=== PATIENT | female | born 1965 | race Caucasian/White ===

== ENCOUNTER 2018-11-22 01:14 | Inpatient (IN) | payer BC, OTHER ==
--- NOTE | 2018-11-22 01:37 | ED ---
Psychiatric Complaint - HPI Summary HPI Summary: Pt is a 53 y/o female who presents to the ED c/o SI. She c/o worsening anxiety, depression, and SI. Pt drinks alcohol daily, including tonight. Pt is accompanied by her daughter. She is on Cymbalta and Benicar and states that she has ran out of her Cymbalta. Pt took her HTN medication this morning. She denies any MILLARD or N/V. PMHx depression. She denies any drug use or smoking. - History Of Current Complaint Chief Complaint: EDMentalHealth Time Seen by Provider: 11/22/18 01:26 Hx Obtained From: Patient Onset/Duration: Gradual Onset, Worse Since Timing: Constant Character: Depressed, Anxious Aggravating Factor(s): Medication Non-compliance - ran out of Cymbalta Related History: Positive For: Prior Psychiatric Issues Has Suicidal: Reports: Thoughts. Denies: Has Prior Attempt(s) - Allergies/Home Medications Allergies/Adverse Reactions: Allergies Allergy/AdvReac Type Severity Reaction Status Date / Time Sulfa (Sulfonamide Allergy Unknown Verified 11/22/18 01:21 Antibiotics) Reaction Details PMH/Surg Hx/FS Hx/Imm Hx Cardiovascular History: Reports: Hx Hypercholesterolemia, Hx Hypertension Respiratory History: Reports: Hx Sleep Apnea - mild GI History: Reports: Hx Gastroesophageal Reflux Disease Psychiatric History: Reports: Hx Depression - Surgical History Surgery Procedure, Year, and Place: gastric bypass Infectious Disease History: No Infectious Disease History: Denies: Traveled Outside the [place] in Last 30 Days - Family History Known Family History: Positive: Cardiac Disease, Hypertension, Other - [place] - Social History Alcohol Use: Daily Hx Substance Use: No Substance Use Type: Reports: None Hx Tobacco Use: No Smoking Status (MU): Never Smoked Tobacco Review of Systems Negative: Vomiting, Nausea Negative: Headache Positive: Anxious, Depressed, Other - SI All Other Systems Reviewed And Are Negative: Yes Physical Exam - Summary Physical Exam Summary: VITAL SIGNS: Reviewed. GENERAL: Patient is a well-developed and nourished FEMALE who is lying comfortable in the stretcher. Patient is not in any acute respiratory distress. Alcohol on breath. HEAD AND FACE: No signs of trauma. No ecchymosis, hematomas or skull depressions. No sinus tenderness. EYES: PERRLA, EOMI x 2, No injected conjunctiva, no nystagmus. EARS: Hearing grossly intact. Ear canals and tympanic membranes are within normal limits. MOUTH: Oropharynx within normal limits. NECK: Supple, trachea is midline, no adenopathy, no JVD, no carotid bruit, no c- spine tenderness, neck with full ROM. CHEST: Symmetric, no tenderness at palpation LUNGS: Clear to auscultation bilaterally. No wheezing or crackles. CVS: Regular rate and rhythm, S1 and S2 present, no murmurs or gallops appreciated. ABDOMEN: Soft, non-tender. No signs of distention. No rebound no guarding, and no masses palpated. Bowel sounds are normal. EXTREMITIES: FROM in all major joints, no edema, no cyanosis or clubbing. NEURO: Alert and oriented x 3. No acute neurological deficits. Speech is normal and follows commands. SKIN: Dry and warm Triage Information Reviewed: Yes Vital Signs On Initial Exam: Initial Vitals Temp Pulse Resp BP Pulse Ox 97.4 F 83 16 195/125 98 11/22/18 01:15 11/22/18 01:15 11/22/18 01:15 11/22/18 01:15 11/22/18 01:15 Vital Signs Reviewed: Yes Diagnostics - Vital Signs Vital Signs Temp Pulse Resp BP Pulse Ox 11/22/18 01:15 97.4 F 83 16 195/125 98 - Laboratory Result Diagrams: 11/22/18 01:52 11/22/18 01:52 Lab Statement: Any lab studies that have been ordered have been reviewed, and results considered in the medical decision making process. - EKG 1:53 Cardiac Rate: NL - 78 bpm EKG Rhythm: Sinus Rhythm Summary of EKG Findings: Normal axis. Normal interval. No ischemic changes. Course/Dx - Course Course Of Treatment: Pt is a 53 y/o female who presents to the ED c/o worsening anxiety, depression, and SI. Pt drinks alcohol daily, including tonight. A physical exam revealed alcohol on breath. An EKG was normal with a rate of 78 bpm. In the course pt was given Apresoline and KCl. Bloodwork without abnormalities. A urine toxicology revealed serum alcohol of 347. Pt will be signed out to Dr. Cardoso at shift change, pending sobriety and MHE. Final dx of depression and alcohol intoxication. - Differential Dx/Clinical Impression Provider Diagnosis: Depression, Alcohol intoxication Discharge - Sign-Out/Discharge Documenting (check all that apply): Sign-Out Patient Signing out patient TO: Maninder Cardoso Patient Received Moderate/Deep Sedation with Procedure: No - Discharge Plan Referrals: Adam Bazan MD [Primary Care Provider] - - Attestation Statements Document Initiated by Scribe: Yes Documenting Scribe: Mercedes Moran Provider For Whom Scribe is Documenting (Include Credential): Ralph Andrea MD Scribe Attestation: Mercedes Arzola, scribed for Ralph Andrea MD on 11/22/18 at 0606. Status of Scribe Document: Ready
[2018-11-22] MEDS ORDERED: Nicotine Inhaler* 10 MG AMP INH PRN (01:43)
[2018-11-22] MEDS ORDERED: hydrALAZINE IV* 20 MG/ML VIAL IV SLOW PU ONE (01:45)
[2018-11-22 01:55] LABS: Urine Appearance Clear; Urine Bilirubin Negative (Negative); Urine Blood Negative (Negative); Urine Color Straw; Urine Glucose Negative (Negative); Urine Ketones Negative (Negative); Urine Nitrite Negative (Negative); Urine Protein Negative (Negative); Urine Specific Gravity 1.001 (1.010-1.030); Urine Urobilinogen Negative (Negative)
[2018-11-22 02:00] LABS: ABS Basophils 0.1 10^3/ul (0-0.2); ABS Eosinophils 0.4 10^3/ul (0-0.6); ABS Lymphocytes 2.5 10^3/ul (1.0-4.8); ABS Monocytes 0.6 10^3/ul (0-0.8); ABS Neutrophils 6.5 10^3/ul (1.5-7.7); ABS Nucleated RBC 0 10^3/ul; Eosinophil % 3.8 %; Hematocrit 37 % (33-41); Lymphocyte % 24.5 %; Mean Corpuscular HGB Conc 33 g/dL (31-36); Mean Corpuscular Hemoglobin 27 pg (27-31); Mean Corpuscular Volume 84 fL (80-97); Mean Platelet Volume 7.6 fL (7.4-10.4); Nucleated Red Blood Cells % 0; Platelet Count 246 10^3/uL (150-450); Red Blood Count 4.38 10^6 /uL (3.70-4.87); Red Cell Distribution Width 15 % (10.5-15); White Blood Count 10.1 10^3/uL (3.5-10.8)
[2018-11-22 02:19] LABS: Barbiturates Urine Screen None Detected (None Detect); Benzodiazepine Urine Screen None Detected (None Detect); Urine Cannabinoids Screen None Detected (None Detect)
[2018-11-22 02:28] LABS: ALT 17 U/L (7-52); AST 26 U/L (13-39); Albumin 4.6 g/dL (3.2-5.2); Albumin/Globulin Ratio 1.7 (1-3); Alkaline Phosphatase 98 U/L (34-104); Anion Gap 10 mmol/L (2-11); BUN/Creatinine Ratio 10.9 (8-20); Blood Urea Nitrogen 7 mg/dL (6-24); CO2 Carbon Dioxide 19 mmol/L (22-32); Chloride 104 mmol/L (101-111); EGFR African American 117.9 (>60); EGFR Non-African American 97.4 (>60); Globulin 2.7 g/dL (2-4); Glucose 98 mg/dL (70-100); Potassium 3.4 mmol/L (3.5-5.0); Sodium 133 mmol/L (135-145); Total Protein 7.3 g/dL (6.4-8.9)
[2018-11-22 02:34] LABS: Acetaminophen < 15 mcg/mL; Alcohol 347 mg/dL (<10)
[2018-11-22 02:48] LABS: TSH (Thyroid Stimulating Horm) 4.36 mcIU/mL (0.34-5.60)
[2018-11-22] MEDS ORDERED: Potassium Chlor TAB* 20 MEQ TAB.ER PO ONE (03:39)
--- NOTE | 2018-11-22 07:06 | ED ---
Progress - Progress Note Progress Note: This patient was signed out to Dr. Cardoso from Dr. Andrea upon provider shift change pending mental health evaluation and repeat EtOH. Re-Evaluation - Re-Evaluation First Eval Re-Evaluation Time: 07:36 Change: Unchanged Comment: Pt appears to have been crying. Course/Dx - Course Course Of Treatment: Pt is a 53 y/o female who presents to the ED c/o worsening anxiety, depression, and SI. Pt drinks alcohol daily, including tonight. A physical exam revealed alcohol on breath. An EKG was normal with a rate of 78 bpm. In the course pt was given Apresoline and KCl. Bloodwork without abnormalities. A urine toxicology revealed serum alcohol of 347. Pt will be signed out to Dr. Cardoso at shift change, pending sobriety and MHE. Patient was ablated by to plan and recommends for the patient to be admitted to his services for further workup and management. Final dx of depression and alcohol intoxication. - Diagnoses Provider Diagnoses: Substance induced mood disorder Discharge - Sign-Out/Discharge Documenting (check all that apply): Patient Departure - Admit, Receiving Sign- Out Receiving patient FROM: Ralph Andrea Patient Received Moderate/Deep Sedation with Procedure: No - Discharge Plan Condition: Stable Disposition: PSYCHIATRIC FACILITY-[facility] [place] Referrals: Adam Bazan MD [Primary Care Provider] - - Billing Disposition and Condition Condition: STABLE Disposition: Psychiatric Facility [facility] [place] - Attestation Statements Document Initiated by Greggibe: Yes Documenting Scribe: Bronwyn Gill Provider For Whom Scribe is Documenting (Include Credential): Maninder Cardoso MD Scribe Attestation: Bronwyn Arzola scribed for Maninder Cardoso MD on 11/22/18 at 1625. Scribe Documentation Reviewed: Yes Provider Attestation: The documentation as recorded by the Bronwyn henderson accurately reflects the service I personally performed and the decisions made by Maninder cuello MD Status of Scribe Document: Viewed
[2018-11-22] MEDS ORDERED: busPIRone TAB* 10 MG PO ONE (14:16)
[2018-11-22] MEDS ORDERED: Metoprolol Succinate XL TAB* 50 MG PO ONE (14:16)
--- NOTE | 2018-11-22 14:17 | PN ---
ED Flex Patient Progress Note Date of Service: 11/21/18 Subjective: This is a 53 year-old F who is pending admission to [facility] / transfer to another psychiatric facility / discharge to home / or being observed secondary to depression, SI, ETOH abuse. Pt. examined in room 8 at 1417. She is lying in bed, tearful. Family present. Pt. notes she is a daily drinking and has gone through ETOH withdrawal in the past without seizures. Pt. notes feeling, anxious, h/a, and nausea. Objective: Vitals: Most recent vital signs documented below. General NAD, Alert and oriented x3. Laboratory: Current laboratory results documented below. Assessment: ETOH abuse, depression. Plan: Pending MHE. Morning medication ordered. Pt states she has not been taking cymbalta. Vital Signs Temp Pulse Resp BP Pulse Ox 97.4 F 72 36 147/90 99 11/22/18 01:15 11/22/18 11:15 11/22/18 03:00 11/22/18 11:45 11/22/18 11:15 Lab Results - Entire Visit 11/22/18 11/22/18 11/22/18 01:52 01:52 01:41 WBC 10.1 RBC 4.38 Hgb 12.0 Hct 37 MCV 84 MCH 27 MCHC 33 RDW 15 Plt Count 246 MPV 7.6 Neut % (Auto) 64.7 Lymph % (Auto) 24.5 [place] % (Auto) 6.1 Eos % (Auto) 3.8 Baso % (Auto) 0.9 Absolute Neuts (auto) 6.5 Absolute Lymphs (auto) 2.5 Absolute Monos (auto) 0.6 Absolute Eos (auto) 0.4 Absolute Basos (auto) 0.1 Absolute Nucleated RBC 0 Nucleated RBC % 0 Sodium 133 L Potassium 3.4 L Chloride 104 Carbon Dioxide 19 L Anion Gap 10 BUN 7 Creatinine 0.64 Est GFR ( Amer) 117.9 Est GFR (Non-Af Amer) 97.4 BUN/Creatinine Ratio 10.9 Glucose 98 Calcium 9.0 Total Bilirubin 0.40 AST 26 ALT 17 Alkaline Phosphatase 98 Total Protein 7.3 Albumin 4.6 Globulin 2.7 Albumin/Globulin Ratio 1.7 TSH 4.36 Urine Color Urine Appearance Urine pH Ur Specific [place] Urine Protein Urine Ketones Urine Blood Urine Nitrate Urine Bilirubin Urine Urobilinogen Ur Leukocyte Esterase Urine Glucose Salicylates 3.80 Urine Opiates Screen None detected Acetaminophen < 15 Ur Barbiturates Screen None detected Ur Phencyclidine Scrn None detected Ur Amphetamines Screen None detected U Benzodiazepines Scrn None detected Urine Cocaine Screen None detected U Cannabinoids Screen None detected Serum Alcohol 347 H 11/22/18 01:41 WBC RBC Hgb Hct MCV MCH MCHC RDW Plt Count MPV Neut % (Auto) Lymph % (Auto) [place] % (Auto) Eos % (Auto) Baso % (Auto) Absolute Neuts (auto) Absolute Lymphs (auto) Absolute Monos (auto) Absolute Eos (auto) Absolute Basos (auto) Absolute Nucleated RBC Nucleated RBC % Sodium Potassium Chloride Carbon Dioxide Anion Gap BUN Creatinine Est GFR ( Amer) Est GFR (Non-Af Amer) BUN/Creatinine Ratio Glucose Calcium Total Bilirubin AST ALT Alkaline Phosphatase Total Protein Albumin Globulin Albumin/Globulin Ratio TSH Urine Color Straw Urine Appearance Clear Urine pH 6.0 Ur Specific [place] 1.001 L Urine Protein Negative Urine Ketones Negative Urine Blood Negative Urine Nitrate Negative Urine Bilirubin Negative Urine Urobilinogen Negative Ur Leukocyte Esterase Negative Urine Glucose Negative Salicylates Urine Opiates Screen Acetaminophen Ur Barbiturates Screen Ur Phencyclidine Scrn Ur Amphetamines Screen U Benzodiazepines Scrn Urine Cocaine Screen U Cannabinoids Screen Serum Alcohol
[2018-11-22] MEDS ORDERED: Acetaminophen TAB* 325 MG PO ONE (14:53)
[2018-11-22] MEDS ORDERED: Al Hydrox/Mg Hydrox/Simet LIQ* 30 ML UDC PO PRN (18:23)
[2018-11-22] MEDS ORDERED: LORazepam TAB(*) 1 MG ONE (18:42)
[2018-11-22] MEDS: LORazepam PO 0-6 for WAM protocol PO SCH (18:45)
[2018-11-23] MEDS: LORazepam PO 0-6 for WAM protocol PO SCH ×2 (07:40→17:38)
[2018-11-23] MEDS: Metoprolol Succinate XL TAB* 50 MG PO SCH ×2 (07:40→23:00)
[2018-11-23] MEDS: Vitamin THERAPEUTIC TAB PO SCH (07:59)
[2018-11-23 08:38] LABS: HDL Cholesterol 78.4 mg/dL
[2018-11-23 08:42] LABS: HCG Pregnancy 3.23 mIU/mL
--- NOTE | 2018-11-23 19:40 | HP ---
HISTORY AND PHYSICAL: DATE OF ADMISSION: IDENTIFYING DATA: Nancy is a 53-year-old , employed, female with no prior history of psychiatric admissions, was brought to the emergency department by her daughter because of severe depression, anxiety, suicidal ideations, and excessive drinking on daily basis. CHIEF COMPLAINT: "I feel like a failure in my life, my marriage, and my motherhood." HISTORY OF PRESENT ILLNESS: This 53-year-old female with excessive drinking for approximately 15 years has been going downhill to the point that she is having difficulty maintaining her marriage, her relationship with her daughters and grand babies. She thinks she has everything to be happy, but it is very difficult for her to feel happy. She describes her mood as very depressed with lack of motivation, feeling helpless, hopeless, worthless, and in recent past, she even thought about killing herself, although she did not choose any method how to do it. She has been drinking excessively knowing that it can kill herself , although she did not think she was actively working on ending her life. However, when she drinks excessively, either she passes out or get suicidal and impulsive as well. Her family was very concerned about her safety and that is when they brought her to the emergency room for help. Now, Nancy wants to get a detox on a medical setting prior to going into an alcohol rehab program. PAST PSYCHIATRIC HISTORY: Nancy never had any formal psychiatric treatments, although her primary care physician prescribes her Cymbalta, low dose, for depression. PAST MEDICAL HISTORY: Hypertension which is well controlled on beta max. ALLERGIES: She is allergic to SULFA, reaction as the patient describes is her throat gets closed up. FAMILY HISTORY: She is the youngest of 6 siblings. She has 4 sisters and 1 brother. Her relationship with her siblings are not that good. One of her sisters suffers from bipolar disorder. PERSONAL AND SOCIAL HISTORY: Born and raised in [facility]. Nancy moved to this area for work. 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 She has 3 daughters, who are grown up and , all of them live separately. Her of more than 25 years lives with her with their 4 dogs. In recent past, their relationship has been hampered related to her excessive drinking. PHYSICAL EXAMINATION GENERAL: Nancy is average height, average weight female, who is neatly dressed and groomed. VITAL SIGNS: Showed a blood pressure of 195/125 with a pulse rate of 83 which has normalized since she was admitted here. HEENT: Head: Atraumatic, normocephalic. Face: Within normal limits. Eyes: PERRLA, EOMI x2. Conjunctivae not injected. No nystagmus. Ears: Hearing is grossly intact. Ear canals clean. Tympanic membranes intact bilaterally. Mouth: Oropharynx within normal limits. NECK: Supple. Midline trachea. No adenopathy. No JVD. CHEST: Equal air entry bilaterally. CARDIOVASCULAR: Regular rate and rhythm. S1 and S2 only. No murmurs or gallops. ABDOMEN: Soft, nontender. No evidence of organomegaly. Bowel sounds positive in all quadrants. NEUROLOGICAL: Within normal limits. Cranial nerves II through XII grossly intact. No sensory deficits. MENTAL STATUS EXAMINATION: Appropriately dressed, neatly groomed, female, whose personally hygiene is good. She is alert and oriented to time, place, and person. Makes good eye contact. Describes her mood as depressed. Observed affect was tearful as part of the evaluation. Speech is normal in all spheres. Her intelligence appeared to be average as evidenced by her educational background and vocabulary. There was no evidence of thoughts, perceptual or psychomotor disturbances. She denies any active suicidal or homicidal ideations at this time. Although during the admission, she verbalized some suicidal thoughts without any plan at that time. Insight and judgment appear to be fair to good. DIAGNOSTIC STUDIES/LAB DATA: Labs showed a blood alcohol level of 347 in the emergency room. Rest of the labs were unremarkable. EKG: Sinus rhythm. SUMMARY: This 53-year-old , employed, woman with extensive history of excessive drinking has also been feeling depressed lately and she also verbalized some suicidal thoughts without any plan. DIAGNOSTIC IMPRESSION: Alcohol use disorder; Unspecified depression, rule out major depressive disorder. Physical Health Diagnosis: Essential hypertension. TREATMENT RECOMMENDATIONS: Nancy will benefit from inpatient care for her safety and detoxification on the unit. Her code status will remain full. Supportive milieu, individual and group therapy will be initiated. She was placed on WAM as she scored at least 3 times since her admission. Different treatment options for depression as well as alcohol use disorder were explained to her. She verbalized understanding and some interest to go on medication assisted treatment (MAT). My recommendation will be to try her on oral naltrexone first 50 mg once a day to see how she tolerates it and then if she is willing, to give her Vivitrol (injectable form of naltrexone). There are other chemical treatments for alcohol use disorder that I did not have time to discuss with her; however, she expressed her interest to know more about that and I will recommend her attending psychiatrist to explain other options for her as well. Her aftercare plan might include either intensive outpatient rehab or even inpatient rehab programs. In the meantime, she has also agreed to try Zoloft low dose for depression and I am going to prescribe her Zoloft 25 mg once a day to see how she tolerates it and I will leave rest of the psychopharmacological interventions to her attending psychiatrist on the unit. [id number]/CPS #: [id number] MTDD
[2018-11-24] MEDS: LORazepam PO 0-6 for WAM protocol PO SCH ×2 (03:05→10:15)
[2018-11-24] MEDS: Metoprolol Succinate XL TAB* 50 MG PO SCH ×2 (09:43→20:06)
[2018-11-24] MEDS: Vitamin THERAPEUTIC TAB PO SCH (09:43)
[2018-11-24] MEDS: Sertraline* 25 MG TAB PO SCH (09:43)
[2018-11-25] MEDS: LORazepam PO 0-6 for WAM protocol PO SCH ×2 (01:40→08:33)
[2018-11-25] MEDS: Sertraline* 25 MG TAB PO SCH (08:34)
[2018-11-25] MEDS: Vitamin THERAPEUTIC TAB PO SCH (08:34)
[2018-11-25] MEDS: Metoprolol Succinate XL TAB* 50 MG PO SCH ×2 (08:35→21:12)
--- NOTE | 2018-11-25 15:26 | PN ---
Subjective - Subjective Date of Service: 11/25/18 Service Type: 15728 Hosp care 25 min moderate complexity Subjective: Charito is pleasant to talk to, but she is very reserved and not very happy with herself. We discuss outpatient treatment for alcohol abuse (she is interested but would also like to do it after or before work). We also talk about medication assisted therapy and she is willing to take naltrexone. We will revisit whether she wants the injection tomorrow. She states she's been depressed for 20-30 years and when two dogs 3 months ago, her depression worsened significantly. Cymbalta was not sufficiently protective. She is currently being tried on Zoloft and will be increased to 50 mg tomorrow morning. She has a history of one visit to a therapist, which didn't go as well as she'd have liked, so she never went back. She states she is still open to talking. She also has a history of bariatric surgery. Once she could not consume as much food, she began consuming alcohol instead. I will also add 150 mg of Wellbutrin XL in an attempt to reduce cravings further. Objective - General Observations Appearance: Neat, Well Groomed Appears Stated Age: Yes Stature: WNL Assessment - Assessment Merits Inpatient Hospitalization: For Immediate Safety, For Discharge Planning Inpatient DSM-V Dx: F32.2 Clinical Impression: Charito is a 53 year old woman who comes to the hospital with suicidal ideation following 20-30 years of depression and a recent 3-month episode of intense depression following the loss of two of her dogs. Plan - Plan Treatment Plan: Name: CHARITO ABARCA Birthdate: 1965 [id number] Charito will continue on Zoloft, but have it increased from 25 to 50 mg. Start Wellbutrin XL 150 mg. Start/continue naltrexone 50 mg. Arrange for outpatient substance use treatment. Arrange for outpatient therapy. Continued Medication Management: Different Medication Medications: Current Medications Acetaminophen (Tylenol Tab*) 650 mg PO Q4H PRN PRN Reason: PAIN or TEMP > 101 F Al Hydrox/Mg Hydrox/Simethicone (Maalox Plus*) 30 ml PO Q4H PRN PRN Reason: INDIGESTION Lorazepam (Ativan Tab(*)) 0 - 6 mg PO .PER [facility]; Protocol Last Admin: 11/25/18 08:33 Dose: 2 mg Metoprolol Succinate (Toprol Xl Tab*) 50 mg PO BID STEPHANY Last Admin: 11/25/18 08:35 Dose: 50 mg Multivitamins (Theragran Tab*) 1 tab PO DAILY STEPHANY Last Admin: 11/25/18 08:34 Dose: 1 tab Sertraline HCl (Zoloft*) 25 mg PO DAILY [facility] Last Admin: 11/25/18 08:34 Dose: 25 mg - Discharge Plan Discharge Plan: Outpatient Follow Up Outpatient Program: Private Clinician(s)
[2018-11-25] MEDS: Docosanol 10%* CREAM 2 GM TUBE TOPICAL SCH ×2 (17:37→21:41)
[2018-11-25] MEDS: Acetaminophen TAB* 325 MG PO PRN (21:14)
[2018-11-26] MEDS: LORazepam PO 0-6 for WAM protocol PO SCH (01:11)
[2018-11-26] MEDS: Acetaminophen TAB* 325 MG PO PRN (08:49)
[2018-11-26] MEDS: Metoprolol Succinate XL TAB* 50 MG PO SCH (08:50)
[2018-11-26] MEDS: Vitamin THERAPEUTIC TAB PO SCH (08:50)
[2018-11-26] MEDS: Docosanol 10%* CREAM 2 GM TUBE TOPICAL SCH ×3 (08:51→14:17)
[2018-11-26 08:53] VITALS: BP 140/86
[2018-11-26] MEDS ORDERED: Naltrexone TAB* 50 MG TAB PO SCH (09:00)
[2018-11-26] MEDS ORDERED: BuPROPion XL* 150 MG TAB.XL PO SCH (09:00)
[2018-11-26] MEDS ORDERED: Sertraline* 50 MG TAB PO SCH (09:00)
--- NOTE | 2018-11-26 11:03 | DCNOTE ---
Subjective - Subjective Service Types: 40516 Hosp [place] Day Mgmt simple under 30 min Discharge Date: 11/26/18 Subjective: Nancy is feeling better today, although she didn't sleep well last night. She requests something to help her sleep in the future as it is always a trouble for her to go back to sleep if she wakes in the middle of the night. She states she's agreeable to discharge. She is not ready to go back to work yet and asks for two weeks off to sort out her new plan of care and to get settled into her new routine. Objective - Appearance Appearance: Healthy Appearing Dysmorphic Features: No Hygiene: Normal Grooming: Well Kept - Behavior Psychomotor Activities: Normal Exhibits Abnormal Movement: No - Attitude and Relatedness Attitude and Relatedness: Well Related Eye Contact: Good - Speech Quality: Unpressured Latencies: Normal Quantity: Appropriate - Mood Patient's Decription of Mood: "Okay" - Affect Observed Affect: Constricted Affect Consistent with: Dysphoria - Thought Process Patient's Thought Process: Coherent, Goal Directed Thought Content: No Passive Wish, No Suicidal Planning, No Homicidal Ideation, No Paranoid Ideation - Sensorium Experiencing Hallucinations: No, Sensorium is Clear Type of Hallucinations: Visual: No, Auditory: No, Command: No - Level of Consciousness Orientation: Yes Intact, Yes Orientated to Time, Yes Orientated to Place, Yes Orientated to Person - Impulse Control Impulse Control: Impaired - Insight and Judgement Insight and Judgement: Good - Group Participation Particating in Group Activities: Yes - Medication Management Medication Management Adherence: Yes DC Assessment - Assessment Clinical Impression: Nancy is a 53 year old woman who comes to the hospital with suicidal ideation following 20-30 years of depression and a recent 3-month episode of intense depression following the loss of two of her dogs. Merits Inpatient Hospitalization: No Clear for Discharge: Adequate Clinical Respons, Acceptable Safety Profile Inpatient DSM-V Dx: F33.1 Discharge Planning - Discharge Planning Discharge Plan: Outpatient Follow Up Outpatient Program: Private Clinician(s) Recommendations for Continuing Care: Medication Management, Substance Abuse Counseling, Primary Care Followup Medications: Current Medications Acetaminophen (Tylenol Tab*) 650 mg PO Q4H PRN PRN Reason: PAIN or TEMP > 101 F Last Admin: 11/26/18 08:49 Dose: 650 mg Al Hydrox/Mg Hydrox/Simethicone (Maalox Plus*) 30 ml PO Q4H PRN PRN Reason: INDIGESTION Bupropion HCl (Wellbutrin Xl *) 150 mg PO DAILY [facility] Last Admin: 11/26/18 08:50 Dose: 150 mg Docosanol (Abreva 10%*) 1 applic TOPICAL FIVE TIMES DAILY [facility] Last Admin: 11/26/18 08:51 Dose: Not Given Lorazepam (Ativan Tab(*)) 0 - 6 mg PO .PER [facility]; Protocol Last Admin: 11/26/18 01:11 Dose: 2 mg Metoprolol Succinate (Toprol Xl Tab*) 50 mg PO BID [facility] Last Admin: 11/26/18 08:50 Dose: 50 mg Multivitamins (Theragran Tab*) 1 tab PO DAILY [facility] Last Admin: 11/26/18 08:50 Dose: 1 tab Naltrexone HCl (Naltrexone Tab*) 50 mg PO DAILY [facility]; Protocol Last Admin: 11/26/18 08:50 Dose: 50 mg Sertraline HCl (Zoloft*) 50 mg PO DAILY [facility] Last Admin: 11/26/18 08:50 Dose: 50 mg Discharge Planning: Prescriptions provided for discharge [x] Yes [] No Follow up care details as per social work arrangements. Patient response to discharge plan: [] eager for discharge [x] agreeable with discharge plan [] ambivalent about discharge [] disagrees with discharge today
--- NOTE | 2018-11-27 11:31 | DS ---
CC: [facility] [place] DISCHARGE SUMMARY: DATE OF ADMISSION: 11/22/18 DATE OF DISCHARGE: 11/26/18 PROVIDER: Xuan Farnsworth NP, in Psychiatry. SUPERVISING PHYSICIAN: Dr. Mohinder Alexander* (dictated by Xuan Farnsworth NP). DIAGNOSES: 1. Alcohol induced mood disorder. 2. Major depressive disorder. CONDITION AT THE TIME OF DISCHARGE: Improved . Psychiatrically cleared, stable. Nancy participated in select groups and was social with specific peers. Her family is agreeable to her discharge and we had a lengthy family meeting regarding that. She has done well here psychiatrically. She tolerated the addition of medications well and she is going to go to private clinicians and the [facility] [place]. MENTAL STATUS EXAMINATION: At the time of discharge, Nancy is calm, cooperative , and makes fair eye contact. She is alert and oriented x4. Her grooming is good. Her speech pace is normal. Her thought processes are logical. She is not psychotic or delusional. She denies AH, VH, SI, and HI. Her insight is good. Her judgment is fair. She states she is willing to follow up and she is urged to see a therapist. DISCHARGE INSTRUCTIONS TO THE PATIENT: A. Nancy is prescribed Wellbutrin XL 150 mg, metoprolol 50 mg, naltrexone 50 mg , sertraline 50 mg. B. Diet is regular. C. Activity is as tolerated. She is a nonsmoker. There are no studies pending at the time of discharge. D. Followup care: She has appointments at [facility] in the [place] [facility] on 12/03/18 at 5:30 with Ashley Otero. She has an appointment at the [facility] [place] in the Open Access Department on [address] [place] [address] on Sunday12/01/18 at 11 a.m. and she is referred back to Dr. Adam Bazan, her primary care provider, but she is also welcome to be referred to [facility] to have a new provider. She is being discharged to home. E. Substance abuse followup. She is referred to the [facility] for substance abuse treatment and she is taking naltrexone 50 mg daily. HOSPITAL COURSE: Part A. Chief Complaint: "I feel like a failure in my life, my marriage and motherhood." This 53-year-old female with excessive drinking for approximately 15 years has been going downhill to the point she is having difficulty maintaining her marriage, her relationship with her daughters and grandchildren. She thinks she has everything to be happy about, but it is very difficult for her to feel happy. She describes her mood as very depressed with lack of motivation, feeling helpless, hopeless, worthless, in the recent past, she has even thought about killing herself, although she did not choose a method how to do it. She has been drinking excessively knowing that it can kill her, although she did not think she was actively working on ending her life. However, when she drinks excessively either she passes out or get suicidal and impulsive as well. Her family is very concerned about her safety and that is when they brought her to the emergency room for help. Now Nancy wants to get detox in a medical setting prior to going into an alcohol rehab program. Part B: Psychiatric treatment was rendered. Nancy was admitted to the adult behavioral unit and placed on 15 minute checks for safety. Nancy did well on the unit. She went to select groups, generally those about substance abuse. She interacted with her peers appropriately. She tolerated new medication changes very well including Zoloft, Wellbutrin, and naltrexone. The Zoloft is at 50 mg, the Wellbutrin XL at 150 mg and the naltrexone at 50 mg per day. We did meet at length with part of her family, her and 2 of her daughters: Priscila and Lamar were there. There were some tears shed by all present and Nancy tried to explain that she has been trying hard every day that she is here and she is willing to continue to do with or without the assistance of her family. The family seems as though they need additional instruction on how to deal with a mother who is addicted to alcohol and they are encouraged to go to [facility]. Nancy is reading [employer] and is interested in no longer drinking alcohol. Interestingly, she began drinking heavily after she had bariatric surgery and could not eat excessively. She did lose 250 pounds with that surgery, but also began drinking. She is much improved in mood and insight. She is still reserved, but she is appropriately tearful and asks for support from her family also appropriately. XUAN B. KIERA, CARDIOLOGIST [id number]/[facility] #: [id number] SUPRIYA
== END 2018-11-26 15:30 | disposition home or self-care (01) | DRG 775 ==
LOC: ED 01:14 → BSU 16:00 → UNDOADMIN 18:43 → BSU 18:43
PROVIDERS: ADMIT Psychiatry & Neurology Psychiatry; ATTEND Psychiatry & Neurology Psychiatry
DX: F10.94 Alcohol use, unspecified with alcohol-induced mood disorder (principal); R45.851 Suicidal ideations; F32.9 Major depressive disorder, single episode, unspecified; F41.9 Anxiety disorder, unspecified; I10 Essential (primary) hypertension; E78.00 Pure hypercholesterolemia, unspecified; Y90.8 Blood alcohol level of 240 mg/100 ml or more; G47.30 Sleep apnea, unspecified; K21.9 Gastro-esophageal reflux disease without esophagitis; Z82.49 Family history of ischemic heart disease and other diseases of the circulatory system; Z80.9 Family history of malignant neoplasm, unspecified; Z98.84 Bariatric surgery status; Z88.2 Allergy status to sulfonamides; Z81.8 Family history of other mental and behavioral disorders
CPT/HCPCS: 36415; 80053; 80061; 80307; 80320; 80329; 81003; 83036; 84443; 84702; 85025; 93005; 99222; 99232; 99238; 99285; A9270-GY; G0480; J0360

== ENCOUNTER 2019-06-01 09:21 | Emergency (ER) | payer BC ==
--- NOTE | 2019-06-01 10:28 | UC ---
- HPI Summary HPI Summary: The pt is a 54 yr old female presenting to [facility] c/o right breast pain with erythema and warmth beginning 3 days [employer]. She states that she came from urgent care and has had implants put in her breasts 10 yrs [employer]. She also mentions some rashes on both lower extremities and elbows. She is concerned for infection and rates her current pain severity a 5/10. No aggravating or alleviating factors noted. She also reports fever, muscle pain, and shaking but denies any cough, n/ v/d, hematuria, or dysuria. - History of Current Complaint Hx Obtained From: Patient Breast Chief Complaint: Pain, Breast, Right Onset/Duration: Started Days Ago, Still Present Timing: Constant, Lasting Days Breast Pain Aggravating Factors: Nothing Breast Pain Alleviating Factors: Nothing Breast Associated Signs/Symptoms: Negative - cough, n/v/d, hematuria, or dysuria , Fever, Redness, Warmth, Other: - pos - muscle pain, shaking, right breast pain - Additional Pertinent History Primary Care Physician: KI - Allergy/Home Medications Allergies/Adverse Reactions: Allergies Allergy/AdvReac Type Severity Reaction Status Date / Time Sulfa (Sulfonamide Allergy Unknown Verified 06/01/19 10:11 Antibiotics) Reaction Details Home Medications: Home Medications Lisinopril 10 mg PO DAILY 06/01/19 [History Confirmed 06/01/19] PMH/Surg Hx/FS Hx/Imm Hx Cardiovascular History: Other - neg - HTN Respiratory History: Other - neg - COPD - Surgical History Surgical History: Yes Surgery Procedure, Year, and Place: gastric bypass - Family History Known Family History: Positive: Cardiac Disease, Hypertension, Other - [place] - Social History Alcohol Use: Occasionally Substance Use Type: None Smoking Status (MU): Never Smoked Tobacco - Immunization History Most Recent Influenza Vaccination: none Most Recent Pneumonia Vaccination: never Review of Systems All Other Systems Reviewed And Are Negative: Yes Constitutional: Positive: Fever Skin: Positive: Rash, Other - pos - right breast pain with erythema and warmth Respiratory: Negative: Cough Gastrointestinal: Negative: Vomiting, Diarrhea, Nausea Genitourinary: Negative: Dysuria, Hematuria Musculoskeletal: Positive: Myalgia Neurological: Positive: Other - pos - shaking Physical Exam - Summary Physical Exam Summary: Constitutional: Well-developed, Well-nourished, Alert. (-) Distressed Skin: Warm, Dry, erythematous sandpaper rash over back in multiple large patches HENT: Normocephalic; Atraumatic Eyes: Conjunctiva normal Neck: Musculoskeletal ROM normal neck. (-) JVD, (-) Stridor, (-) Tracheal deviation Cardio: Rhythm regular, rate normal, Heart sounds normal; Intact distal pulses; Radial pulses are 2+ and symmetric. (-) Murmur Pulmonary/Chest wall: Effort normal. (-) Respiratory distress, (-) Wheezes, (-) Rales Abd: Soft, (-) tenderness, (-) Distension, (-) Guarding, (-) Rebound Musculoskeletal: (-) Edema, Legs with excoriation on ankles Breast: Right breast is erythematous and tender no fluctuance or induration palpated Lymph: (-) Cervical adenopathy Neuro: Alert, Oriented x3 Psych: Mood and affect Normal Triage Information Reviewed: Yes Vital Signs: Initial Vital Signs Temp 96.8 F 06/01/19 09:22 Pulse 95 06/01/19 09:22 Resp 16 06/01/19 09:22 BP 180/116 06/01/19 09:22 Pulse Ox 98 06/01/19 09:22 Vital Signs Reviewed: Yes Procedures - Sedation Patient Received Moderate/Deep Sedation with Procedure: No Diagnostics - Radiology Breast US Radiology Interpretation Completed By: Radiologist Summary of Radiographic Findings: IMPRESSION: #. No evidence for abscess at the lower outer quadrant of the RIGHT breast. Clinical follow-up suggested. #. The patient is due for a bilateral mammogram with the most recent mammogram available on the [facility] PACS from October 15, 2008. Breast Pain Course/Dx - Course Course Of Treatment: Patient was sent in from an urgent care for possible breast abscess. Patient's had a couple of days of fever, myalgias, rash. Patient has no red flag symptoms of rash. Patient does have a slightly erythematous right breast that is tender with no palpated abscess. Patient's breast does not look cellulitic in nature. Patient had a negative ultrasound for abscess. Patient had blood work sent which showed a mild acidosis and a transaminitis. Patient does live in a locked cabinet in the [facility] but has had no known tick exposure. Patient had tick panel sent. Patient had a hepatitis panel sent. Patient is likely suffering from a nondescript viral illness that she is overall well-appearing. Patient was discharged with PCP follow-up - Diagnoses Provider Diagnoses: Fever, Myalgia, Rash, Transaminitis, Breast pain Discharge ED - Sign-Out/Discharge Documenting (check all that apply): Patient Departure - discharge - Discharge Plan Condition: Stable Disposition: HOME Patient Education Materials: Fever in Adults (ED), Musculoskeletal Pain (ED) Referrals: Adam Bazan MD [Primary Care Provider] - 3 Days Additional Instructions: Follow up with your primary care physician in 1-3 days. Please take Benadryl for itching. PLEASE RETURN TO EMERGENCY DEPARTMENT FOR ANY NEW OR WORSENING SYMPTOMS. Please follow up with your primary care physician. Please make all follow-ups in 1-3 days unless I advise you otherwise. - Billing Disposition and Condition Condition: STABLE Disposition: Home - Attestation Statements Document Initiated by Mika: Yes Documenting Scribe: Tello Roca Provider For Whom Mika is Documenting (Include Credential): Sylvester Peter MD Scribe Attestation: ITello, scribed for Sylvester Peter MD on 06/01/19 at 1244. Scribe Documentation Reviewed: Yes Provider Attestation: The documentation as recorded by the Tello henderson accurately reflects the service I personally performed and the decisions made by , Sylvester Peter MD Status of Scribe Document: Viewed
[2019-06-01 10:33] LABS: ABS Basophils 0.1 10^3/ul (0-0.2); ABS Eosinophils 0.1 10^3/ul (0-0.6); ABS Lymphocytes 0.7 10^3/ul (1.0-4.8); ABS Monocytes 0.5 10^3/ul (0-0.8); ABS Neutrophils 9.6 10^3/ul (1.5-7.7); Eosinophil % 0.9 %; Hematocrit 33 % (35-47); Lymphocyte % 6.1 %; Mean Corpuscular HGB Conc 34 g/dL (31-36); Mean Corpuscular Hemoglobin 27 pg (27-31); Mean Corpuscular Volume 80 fL (80-97); Mean Platelet Volume 7.9 fL (7.4-10.4); Platelet Count 216 10^3/uL (150-450); Red Blood Count 4.08 10^6 /uL (3.70-4.87); Red Cell Distribution Width 16 % (10-15); White Blood Count 10.9 10^3/uL (3.5-10.8)
[2019-06-01 10:49] LABS: Albumin 4.2 g/dL (3.2-5.2); Albumin/Globulin Ratio 1.4 (1-3); BUN/Creatinine Ratio 17.1 (8-20); EGFR African American 105.9 (>60); EGFR Non-African American 87.5 (>60); Potassium 3.4 mmol/L (3.5-5.0); Total Bilirubin 1.1 mg/dL (0.2-1.0); Total Protein 7.2 g/dL (6.4-8.9)
[2019-06-01 11:32] VITALS: BP 167/114
[2019-06-01 12:23] LABS: Hepatitis B Surface Antigen Nonreactive (Nonreactive)
[2019-06-01 12:40] LABS: Hepatitis C Antibody Negative (Negative)
[2019-06-04 23:19] LABS: Anaplasma phagocytophilum Negative (Negative); B garinii/B afzelii PCR Negative (Negative); B mayonii PCR Negative (Negative); B. miyamotoi PCR, B Negative (Negative); Babesia divergens/MO-1 Negative (Negative); Babesia ducani Negative (Negative); Ehrlichia chaffeensis Negative (Negative); Ehrlichia ewingii/canis Negative (Negative); Ehrlichia muris eauclairensis Negative (Negative)
== END 2019-06-01 11:32 | disposition home or self-care (01) ==
LOC: ED 09:21
DX: N64.4 Mastodynia (principal); R50.9 Fever, unspecified; M79.10 Myalgia, unspecified site; R21 Rash and other nonspecific skin eruption; R74.0 Nonspecific elevation of levels of transaminase and lactic acid dehydrogenase [LDH]; I10 Essential (primary) hypertension; Z88.2 Allergy status to sulfonamides
CPT/HCPCS: 36415; 80053; 80074; 85025; 87476; 87798; 96372; 99282